=== PATIENT | male | born 1980 | race Caucasian/White ===

== ENCOUNTER 2016-12-12 12:07 | Emergency (ER) | payer OTHER ==
[2016-12-12 12:32] LABS: HEMOGLOBIN 14.3 gm/dl (14.0-17.5); RED BLOOD COUNT 4.82 M/UL (4.20-5.50); WHITE BLOOD COUNT 6.2 K/UL (4.5-11.0)
[2016-12-12 12:55] LABS: BUN/CREATININE RATIO 16 (0-10)
== END 2016-12-12 18:20 | disposition home or self-care (01) ==
LOC: ER1 12:07
PROVIDERS: Specialist/Technologist Athletic Trainer
DX: R42 Dizziness and giddiness (principal); R55 Syncope and collapse; F17.290 Nicotine dependence, other tobacco product, uncomplicated; Z88.0 Allergy status to penicillin; Z88.1 Allergy status to other antibiotic agents
CPT/HCPCS: 71010; 80053; 80307; 82550; 82553; 83874; 84484; 85025; 93005; 99284; J7030

== ENCOUNTER 2021-07-31 10:50 | Emergency (ER) | payer OTHER | END 2021-07-31 11:58 | disposition left against medical advice (07) | LOC: ER1 10:50 | DX: Z53.21 Procedure and treatment not carried out due to patient leaving prior to being seen by health care provider (principal) ==